=== PATIENT | female | born 1960 | race Caucasian/White ===

== ENCOUNTER 2017-06-04 20:03 | Emergency (ER) | payer MEDICARE ==
[~2017-06-04] VITALS: Ht 160 cm; Wt 158.3 kg
[~2017-06-04 20:03] MED LIST: CEPH-568 PO; NORCO5 PO; SULF1TAB47 PO
[2017-06-04 20:13] VITALS: BP_SYST 159
--- NOTE | 2017-06-04 20:20 | NUR ---
TABATHA Urbina at bedside examining patient.
--- NOTE | 2017-06-04 20:20 | NUR ---
Patient to ER bed 3 to gown for evaluation. Side rails up. Report given to XIOMARA BENEDICT.
--- NOTE | 2017-06-04 20:30 | NUR ---
Pt states that she has been having R back pain that radiates to the R leg for a week. Will continue to monitor. No other injuries or complaints mentioned/noted. No distress noted.
[2017-06-04 20:54] LABS: BASOPHILS # (AUTO) 0.1 K/uL (0.0-0.2); BASOPHILS % (AUTO) 1.2 % (0.0-2.0); EOSINOPHILS # (AUTO) 0.1 K/uL (0.0-0.4); EOSINOPHILS % (AUTO) 1.1 % (0.0-4.0); HEMOGLOBIN 15.6 g/dL (12.0-16.0); LYMPHOCYTES # (AUTO) 1.8 K/uL (1.0-5.5); LYMPHOCYTES % (AUTO) 17.8 % (20.5-51.5); MEAN CORPUSCULAR HEMOGLOBIN 29 pg (27-31); MEAN CORPUSCULAR HGB CONC 33 % (32-36); MEAN CORPUSCULAR VOLUME 88 fL (79.0-98.0); MONOCYTES # (AUTO) 0.7 K/uL (0.0-1.0); MONOCYTES % (AUTO) 6.6 % (1.7-9.3); NEUTROPHILS # (AUTO) 7.5 K/uL (1.8-7.7); NEUTROPHILS % (AUTO) 73.3 % (40.0-70.0); PLATELET COUNT (AUTO) 273 K/uL (130-430); RED BLOOD CELL COUNT(AUTO) 5.35 MIL/uL (4.2-6.2); RED CELL DISTRIBUTION WIDTH 13.3 % (9.0-15.0); WHITE BLOOD COUNT (AUTO) 10.2 K/uL (4.8-10.8)
[2017-06-04 21:00] LABS: CALCIUM 8.8 mg/dL (8.4-11.0); CREATININE 0.6 mg/dL (0.55-1.30); POTASSIUM 3.6 mmol/L (3.5-5.1)
[2017-06-04 21:07] LABS: ALBUMIN 3.6 g/dL (3.4-4.8); TOTAL BILIRUBIN 0.4 mg/dL (0.0-1.0)
[2017-06-04] MEDS ORDERED: KETOROLAC TROMETHAMINE 30 MG VIAL IM ONE (21:15)
[2017-06-04] MEDS ORDERED: CYCLOBENZAPRINE HCL 10 MG TABLET (FLEXERIL) PO ONE (21:15)
[2017-06-04 21:25] LABS: BILIRUBIN,URINE NEGATIVE (NEGATIVE); BLOOD, URINE NEGATIVE (NEGATIVE); CLARITY/URINE CLEAR (CLEAR); COLOR,URINE YELLOW (YELLOW); GLUCOSE,URINE NEGATIVE (NEGATIVE); KETONES,URINE NEGATIVE (NEGATIVE); LEUKOCYTE ESTERASE ,URINE NEGATIVE (NEGATIVE); NITRITE, URINE NEGATIVE (NEGATIVE); PH,URINE 6.5 (5.0-8.0); PROTEIN URINE NEGATIVE (NEGATIVE); UROBILINOGEN,URINE 0.2 (0.2-1.0)
[2017-06-04 22:05] VITALS: BP_SYST 144
--- NOTE | 2017-06-04 22:05 | NUR ---
Patient given written and verbal discharge instructions and verbalizes understanding. ER MD discussed with patient the results and treatment provided. Patient in stable condition. ID arm band removed. Rx of Flexeril and Naproxen given. Patient educated on pain management and to follow up with PMD. Pain Scale 0/10. Opportunity for questions provided and answered. No adverse reactions noted.
== END 2017-06-04 22:05 | disposition home or self-care (01) ==
LOC: SED 20:03
DX: S39.012A Strain of muscle, fascia and tendon of lower back, initial encounter (principal); I10 Essential (primary) hypertension; E11.9 Type 2 diabetes mellitus without complications; J45.909 Unspecified asthma, uncomplicated; E66.01 Morbid (severe) obesity due to excess calories; Z90.49 Acquired absence of other specified parts of digestive tract; Z98.84 Bariatric surgery status; Z68.44 Body mass index [BMI] 60.0-69.9, adult; X58.XXXA Exposure to other specified factors, initial encounter; Y93.89 Activity, other specified; Y92.89 Other specified places as the place of occurrence of the external cause; Y99.8 Other external cause status
CPT/HCPCS: 36415; 72100; 80053; 81003; 81025; 83690; 85025; 96372; 99285; J1885

== ENCOUNTER 2017-09-19 00:24 | Emergency (ER) | payer MEDICARE ==
[~2017-09-19] VITALS: Ht 162.6 cm; Wt 141.1 kg
--- NOTE | 2017-09-19 00:30 | NUR ---
Patient to ER bed 6 to gown for evaluation. Side rails up. Report given to XIOMARA MILLARD.
--- NOTE | 2017-09-19 00:30 | NUR ---
Patient arrived to ED with c/o left foot pain. Reports 5/10 pain. Pain with ambulation. No obvious deformity noted to site. Denies trauma. Patient also reports deformity to right breast that appeared 1 week ago. Denies N/V/D
--- NOTE | 2017-09-19 00:33 | NUR ---
ED MD Amezcua at bedside for medical evaluation.
[2017-09-19 00:35] VITALS: BP_SYST 142
[2017-09-19 00:42] VITALS: BP_SYST 139
--- NOTE | 2017-09-19 00:42 | NUR ---
Patient given written and verbal discharge instructions and verbalizes understanding. ER MD discussed with patient the results and treatment provided. Patient in stable condition. ID arm band removed. IV catheter removed intact and dressing applied, no active bleeding. Rx of Tramadol, Keflex and Clindamycin given. Patient educated on pain management and to follow up with PMD. Pain Scale 3/10 tolerable for patient. Opportunity for questions provided and answered. Medication side effect fact sheet provided.
== END 2017-09-19 00:42 | disposition home or self-care (01) ==
LOC: SED 00:24
DX: S90.32XA Contusion of left foot, initial encounter (principal); N61.0 Mastitis without abscess; J45.909 Unspecified asthma, uncomplicated; I10 Essential (primary) hypertension; Z79.899 Other long term (current) drug therapy; X58.XXXA Exposure to other specified factors, initial encounter; Y93.89 Activity, other specified; Y92.89 Other specified places as the place of occurrence of the external cause; Y99.8 Other external cause status
CPT/HCPCS: 99284

== ENCOUNTER 2018-05-16 15:07 | Emergency (ER) | payer MEDICARE ==
[~2018-05-16] VITALS: Ht 162.6 cm; Wt 162.8 kg
[2018-05-16 15:07] VITALS: BP_SYST 164
[2018-05-16] MEDS ORDERED: KETOROLAC TROMETHAMINE 60 MG/2 ML VIAL IM ONE (15:30)
[2018-05-16 16:00] VITALS: BP_SYST 164
== END 2018-05-16 16:00 | disposition home or self-care (01) ==
LOC: SED 15:07
DX: K08.89 Other specified disorders of teeth and supporting structures (principal); K02.9 Dental caries, unspecified; J45.909 Unspecified asthma, uncomplicated; I10 Essential (primary) hypertension; E11.9 Type 2 diabetes mellitus without complications; Z79.899 Other long term (current) drug therapy
CPT/HCPCS: 96372; 99283; J1885

== ENCOUNTER 2019-06-04 22:23 | Emergency (ER) | payer BC, MEDICARE ==
[~2019-06-04] VITALS: Ht 162.6 cm; Wt 162.8 kg
[2019-06-04] MEDS ORDERED: ASPIRIN 81 MG TAB.CHEW PO ONE (22:45)
[2019-06-04 23:07] LABS: BASOPHILS % (AUTO) 0.3 % (0.0-2.0); EOSINOPHILS # (AUTO) 0.1 K/uL (0.0-0.4); EOSINOPHILS % (AUTO) 1.4 % (0.0-4.0); HEMATOCRIT 42.4 % (36-48); HEMOGLOBIN 14.3 g/dL (12.0-16.0); LYMPHOCYTES # (AUTO) 1.8 K/uL (1.0-5.5); LYMPHOCYTES % (AUTO) 18.8 % (20.5-51.5); MEAN CORPUSCULAR HEMOGLOBIN 30 pg (27-31); MEAN CORPUSCULAR HGB CONC 34 % (32-36); MEAN CORPUSCULAR VOLUME 90 fL (79.0-98.0); MONOCYTES # (AUTO) 0.7 K/uL (0.0-1.0); MONOCYTES % (AUTO) 7.1 % (1.7-9.3); NEUTROPHILS # (AUTO) 7.1 K/uL (1.8-7.7); NEUTROPHILS % (AUTO) 72.4 % (40.0-70.0); PLATELET COUNT (AUTO) 242 K/uL (130-430); RED BLOOD CELL COUNT(AUTO) 4.73 MIL/uL (4.2-6.2); WHITE BLOOD COUNT (AUTO) 9.8 K/uL (4.8-10.8)
[2019-06-04 23:10] VITALS: BP_SYST 158
[2019-06-04 23:25] LABS: PROTHROMBIN TIME 9.6 SECS (9.5-12.5)
[2019-06-04 23:29] LABS: CREATININE 0.7 mg/dL (0.55-1.30); POTASSIUM 3.6 mmol/L (3.5-5.1)
[2019-06-04 23:35] LABS: ALBUMIN 3.3 g/dL (3.4-4.8); TOTAL BILIRUBIN 0.2 mg/dL (0.0-1.0)
[2019-06-05] MEDS ORDERED: NACL 0.9% 1,000 ML IV ONE (01:45)
[2019-06-05] MEDS ORDERED: metFORMIN HCL 500 MG TABLET PO SCH (02:00)
--- NOTE | 2019-06-05 02:15 | NUR ---
Patient to ER bed 7 to gown for evaluation. Side rails up.
--- NOTE | 2019-06-05 02:20 | NUR ---
Dr. Thayer bedside for Pt eval
--- NOTE | 2019-06-05 02:30 | NUR ---
Pt BIB parent to ED C/O epigastric pain since 12:00 today. The pain is rated 6/10 intensity. She further reports nausea associated with non-bilious, non-bloody emesis. She states chest pain earlier today but denies any now. No other injuries and or complaints noted. VSS no s/s of acute distress. Resting on gurney rails up
[2019-06-05 03:20] VITALS: BP_SYST 158
--- NOTE | 2019-06-05 03:20 | NUR ---
Patient given written and verbal discharge instructions and verbalizes understanding. ER MD discussed with patient the results and treatment provided. Patient in stable condition. ID arm band removed. IV catheter removed intact and dressing applied, no active bleeding. Rx of Ranitidine and given. Patient educated on pain management and to follow up with PMD. Pain Scale 0/10 Opportunity for questions provided and answered. Medication side effect fact sheet provided.
== END 2019-06-05 03:20 | disposition home or self-care (01) ==
LOC: SED 22:23
DX: R07.89 Other chest pain (principal); R10.13 Epigastric pain; E11.9 Type 2 diabetes mellitus without complications; J45.909 Unspecified asthma, uncomplicated; I10 Essential (primary) hypertension; L03.115 Cellulitis of right lower limb; F17.210 Nicotine dependence, cigarettes, uncomplicated; Z72.89 Other problems related to lifestyle; Z79.899 Other long term (current) drug therapy
CPT/HCPCS: 36415; 71045; 80053; 82550-TC; 84484; 85025; 85610-TC; 85730-TC; 93005; 99284

== ENCOUNTER 2019-07-23 15:45 | Emergency (ER) | payer BC ==
[~2019-07-23] VITALS: Ht 160 cm; Wt 154.2 kg
[2019-07-23 15:50] VITALS: BP_SYST 181
--- NOTE | 2019-07-23 15:50 | NUR ---
Patient triaged and placed in waiting room. VSS and patient appears in no acute distress at this time. Accompanied by grandchildren, awaiting available bed, and MD notified of need for MSE.
--- NOTE | 2019-07-23 18:28 | NUR ---
Patient to ER bed 6 to gown for evaluation. Side rails up. Report given to XIOMARA Harley.
--- NOTE | 2019-07-23 18:34 | NUR ---
Pt AAOx4 ambulated into ED c/o R 05/05 throbbing jaw pain/toothache and swelling x 1 month with sowrsening symptoms. Pt was seen by dentist who gave rx abx and tylenol with no relief. Denies n/v/d/bleeding. No other injuries/complaints per pt/noted. Will continue to monitor.
--- NOTE | 2019-07-23 18:40 | NUR ---
ER Dr. Thayer at bedside examining patient.
[2019-07-23] MEDS ORDERED: ACETAMINOPHEN 500 MG TABLET PO ONE (19:00)
[2019-07-23 19:15] VITALS: BP_SYST 162
--- NOTE | 2019-07-23 19:15 | NUR ---
Patient given written and verbal discharge instructions and verbalizes understanding. ER MD Thayer discussed with patient the results and treatment provided. Patient in stable condition. ID arm band removed. Rx of Penicillin VK, Tylenol with Codeine given. Patient educated on pain management and to follow up with PMD. Pain Scale 0. Opportunity for questions provided and answered. Medication side effect fact sheet provided.
== END 2019-07-23 19:15 | disposition home or self-care (01) ==
LOC: SED 15:45
DX: K02.9 Dental caries, unspecified (principal); J45.909 Unspecified asthma, uncomplicated; E11.9 Type 2 diabetes mellitus without complications; I10 Essential (primary) hypertension; Z98.890 Other specified postprocedural states
CPT/HCPCS: 99283

== ENCOUNTER 2020-01-15 18:30 | Emergency (ER) | payer BC ==
[~2020-01-15] VITALS: Ht 162.6 cm; Wt 140.6 kg
--- NOTE | 2020-01-15 19:20 | NUR ---
Pt placed in bed #3.
[2020-01-15 19:30] VITALS: BP_SYST 154
--- NOTE | 2020-01-15 19:30 | NUR ---
ER at bedside examining patient.
--- NOTE | 2020-01-15 19:45 | NUR ---
59 y/o female presents to the ER c/o rash on abdomen, b/l lower extremities w/ itcheness x 5days. Rash appears pimple like in different stages of healing, no fluid like d/c from rash. Pt denies use of new soaps, perfume, lotions. HX DM, Hernia. NKA.
[2020-01-15] MEDS ORDERED: DIPHENHYDRAMINE HCL 50 MG CAPSULE PO ONE (20:15)
[2020-01-15] MEDS ORDERED: DIPHENHYDRAMINE HCL 50 MG CAPSULE ONE (20:26)
[2020-01-15 20:27] VITALS: BP_SYST 154
--- NOTE | 2020-01-15 20:29 | NUR ---
Patient given written and verbal discharge instructions and verbalizes understanding. ER MD discussed with patient the results and treatment provided. Patient in stable condition. ID arm band removed. Rx of Diphenhydramine given. Opportunity for questions provided and answered.
== END 2020-01-15 20:27 | disposition home or self-care (01) ==
LOC: SED 18:30
DX: L03.311 Cellulitis of abdominal wall (principal); R21 Rash and other nonspecific skin eruption; I10 Essential (primary) hypertension; E11.9 Type 2 diabetes mellitus without complications; J45.909 Unspecified asthma, uncomplicated; Z79.899 Other long term (current) drug therapy
CPT/HCPCS: 99283; Q0163

== ENCOUNTER 2022-01-20 21:43 | Emergency (ER) | payer BC ==
[~2022-01-20] VITALS: Ht 162.6 cm; Wt 126.1 kg
[2022-01-20 21:57] VITALS: BP_SYST 159
--- NOTE | 2022-01-20 22:08 | NUR ---
PT IN WAITING ROOM AWAITING EXAM AND ROOM AVAILABILITY
[2022-01-20] MEDS ORDERED: CHLO118L TP (23:40)
[2022-01-20] MEDS ORDERED: SULF1TAB48 PO (23:40)
[2022-01-21] MEDS ORDERED: VANCOMYCIN HCL 1000 MG/VIAL IV ONE (00:17)
[2022-01-21] MEDS ORDERED: cefTRIAXone 1 GM IVPB PREMIX 50 ML IV ONE (00:30)
[2022-01-21] MEDS: VANCOMYCIN HCL 1,000 MG in NS 250 ML IV ONE ×2 (00:30→02:49)
[2022-01-21 03:23] VITALS: BP_SYST 142
--- NOTE | 2022-01-21 03:25 | NUR ---
dc patient home aaox4, no sob noted and not in any distress. DC instruction and prescription were given to pt. Verbal Dc and print out was given by Dr. Astudillo at bedside, pt verbalized understanding and pout of department with steady gait.
== END 2022-01-21 03:23 | disposition home or self-care (01) ==
LOC: SED 21:43
DX: L03.314 Cellulitis of groin (principal); N61.1 Abscess of the breast and nipple; J45.909 Unspecified asthma, uncomplicated; E11.9 Type 2 diabetes mellitus without complications; I10 Essential (primary) hypertension; Z79.899 Other long term (current) drug therapy
CPT/HCPCS: 36415; 87040; 96365; 96366; 96368; 99284; J0696; J3370

== ENCOUNTER 2023-03-20 10:21 | Emergency (ER) | payer BC ==
[~2023-03-20] VITALS: Ht 160 cm; Wt 167.4 kg
[~2023-03-20 10:21] MED LIST changes: +CHLO118L TP; +SULF1TAB48 PO
[2023-03-20 10:49] VITALS: BP_SYST 151; PULSE 106; RESP 16; TEMP 98.8; O2SAT 95
[2023-03-20] MEDS ORDERED: METF1000 PO (10:55)
[2023-03-20] MEDS ORDERED: SIMV-343 PO (10:55)
[2023-03-20] MEDS ORDERED: NACL 0.9% 1,000 ML IV ONE (11:15)
[2023-03-20 11:28] LABS: BASOPHILS # (AUTO) 0.1 K/uL (0.0-0.2); BASOPHILS % (AUTO) 0.5 % (0.0-2.0); HEMATOCRIT 43.7 % (36-48); HEMOGLOBIN 14.5 g/dL (12.0-16.0); LYMPHOCYTES # (AUTO) 0.5 K/uL (1.0-5.5); LYMPHOCYTES % (AUTO) 3.6 % (20.5-51.5); MEAN CORPUSCULAR HEMOGLOBIN 29 pg (27-31); MEAN CORPUSCULAR HGB CONC 33 % (32-36); MEAN CORPUSCULAR VOLUME 88 fL (79.0-98.0); MONOCYTES # (AUTO) 1.1 K/uL (0.0-1.0); MONOCYTES % (AUTO) 8.1 % (1.7-9.3); NEUTROPHILS # (AUTO) 11.8 K/uL (1.8-7.7); NEUTROPHILS % (AUTO) 87.8 % (40.0-70.0); PLATELET COUNT (AUTO) 247 K/uL (130-430); RED BLOOD CELL COUNT(AUTO) 4.97 MIL/uL (4.2-6.2); WHITE BLOOD COUNT (AUTO) 13.4 K/uL (4.8-10.8)
[2023-03-20 11:36] LABS: CALCIUM 8.4 mg/dL (8.4-11.0); CREATININE 0.62 mg/dL (0.55-1.30); POTASSIUM 3.9 mmol/L (3.5-5.1)
[2023-03-20 11:41] LABS: ALBUMIN 3.1 g/dL (3.4-4.8); TOTAL BILIRUBIN 0.9 mg/dL (0.0-1.0); TOTAL PROTEIN, SERUM 7.5 g/dL (6.4-8.3)
[2023-03-20 13:12] LABS: BILIRUBIN,URINE NEGATIVE (NEGATIVE); BLOOD, URINE TRACE (NEGATIVE); CLARITY/URINE SLIGHTLY HAZY (CLEAR); COLOR,URINE YELLOW (YELLOW); GLUCOSE,URINE TRACE (NEGATIVE); KETONES,URINE NEGATIVE (NEGATIVE); LEUKOCYTE ESTERASE ,URINE 2+ (NEGATIVE); NITRITE, URINE NEGATIVE (NEGATIVE); PH,URINE 6.5 (5.0-8.0); PROTEIN URINE TRACE (NEGATIVE); UROBILINOGEN,URINE 0.2 (0.2-1.0)
[2023-03-20 13:18] LABS: BACTERIA,URINE MANY /HPF (None Seen)
[2023-03-20 14:01] VITALS: BP_SYST 138; PULSE 95; RESP 14; O2SAT 95
[2023-03-20] MEDS ORDERED: cefTRIAXone 1 GM IVPB PREMIX 50 ML IV ONE (14:15)
[2023-03-20] MEDS ORDERED: KETOROLAC TROMETHAMINE 30 MG VIAL IVP ONE (14:15)
[2023-03-20] MEDS ORDERED: CEPH-548 PO (14:20)
[2023-03-20] MEDS ORDERED: IBUP-1971 PO (14:20)
[2023-03-20] MEDS ORDERED: ONDA-8 TL (14:20)
== END 2023-03-20 16:25 | disposition home or self-care (01) ==
LOC: SED 10:21
DX: N12 Tubulo-interstitial nephritis, not specified as acute or chronic (principal); R10.9 Unspecified abdominal pain; R11.0 Nausea; J45.909 Unspecified asthma, uncomplicated; E11.9 Type 2 diabetes mellitus without complications; I10 Essential (primary) hypertension; R68.83 Chills (without fever); Z79.899 Other long term (current) drug therapy
CPT/HCPCS: 99285; 74176; 96365; 96361; 96375; 80053; 81000; 83690; 85025; 87040; 87086; 36415; 76376; 83605; J0696; J1885; J7030

== ENCOUNTER 2023-06-15 22:52 | Emergency (ER) | payer BC ==
[~2023-06-15] VITALS: Ht 162.6 cm; Wt 133.8 kg
[~2023-06-15 22:52] MED LIST changes: +CEPH-548 PO; -CEPH-568 PO; +IBUP-1971 PO; +METF1000 PO; +ONDA-8 TL; +SIMV-343 PO; -SULF1TAB47 PO
[2023-06-15 23:25] VITALS: BP_SYST 111; PULSE 86; RESP 18; TEMP 96.8; O2SAT 98
[2023-06-16] MEDS ORDERED: MED4 PO (00:06)
== END 2023-06-16 00:24 | disposition home or self-care (01) ==
LOC: SED 22:52
DX: J06.9 Acute upper respiratory infection, unspecified (principal); E04.8 Other specified nontoxic goiter; J45.909 Unspecified asthma, uncomplicated; E11.9 Type 2 diabetes mellitus without complications; I10 Essential (primary) hypertension; Z79.899 Other long term (current) drug therapy
CPT/HCPCS: 99283

== ENCOUNTER 2023-08-18 11:36 | Emergency (ER) | payer BC ==
[~2023-08-18] VITALS: Ht 162.6 cm; Wt 126.6 kg
[~2023-08-18 11:36] MED LIST changes: +MED4 PO
[2023-08-18 12:25] VITALS: BP_SYST 125; PULSE 97; RESP 18; TEMP 97; O2SAT 98
[2023-08-18 12:38] LABS: BASOPHILS % (AUTO) 0.4 % (0.0-2.0); MEAN CORPUSCULAR HEMOGLOBIN 30 pg (27-31); MONOCYTES # (AUTO) 0.8 K/uL (0.0-1.0); NEUTROPHILS # (AUTO) 8.3 K/uL (1.8-7.7)
[2023-08-18 12:43] LABS: EOSINOPHILS % (AUTO) 0.3 % (0.0-4.0); HEMATOCRIT 44.8 % (36-48); HEMOGLOBIN 15.6 g/dL (12.0-16.0); LYMPHOCYTES # (AUTO) 1.5 K/uL (1.0-5.5); LYMPHOCYTES % (AUTO) 14.2 % (20.5-51.5); MEAN CORPUSCULAR HGB CONC 35 % (32-36); MEAN CORPUSCULAR VOLUME 87 fL (79.0-98.0); MONOCYTES % (AUTO) 7.7 % (1.7-9.3); NEUTROPHILS % (AUTO) 77.4 % (40.0-70.0); PLATELET COUNT (AUTO) 342 K/uL (130-430); RED BLOOD CELL COUNT(AUTO) 5.14 MIL/uL (4.2-6.2); RED CELL DISTRIBUTION WIDTH 14.1 % (9.0-15.0); WHITE BLOOD COUNT (AUTO) 10.8 K/uL (4.8-10.8)
[2023-08-18 12:53] LABS: CALCIUM 9.6 mg/dL (8.4-11.0); CREATININE 0.66 mg/dL (0.55-1.30); POTASSIUM 3.4 mmol/L (3.5-5.1)
[2023-08-18 12:58] LABS: PROTHROMBIN TIME 10.6 SECS (9.5-12.5)
[2023-08-18 13:28] LABS: FREE T4 (FREE THYROXINE) 1.2 ng/dL (0.6-1.6); THYROID STIMULATING HORMONE 1.74 uIu/mL (0.34-4.82)
[2023-08-18 15:35] VITALS: BP_SYST 125; PULSE 97; RESP 18; TEMP 97; O2SAT 98
== END 2023-08-18 15:35 | disposition home or self-care (01) ==
LOC: SED 11:36
DX: R22.1 Localized swelling, mass and lump, neck (principal); J45.909 Unspecified asthma, uncomplicated; E11.9 Type 2 diabetes mellitus without complications; I10 Essential (primary) hypertension; Z79.899 Other long term (current) drug therapy
CPT/HCPCS: 36415; 70490; 76376; 80048; 83605; 84439; 84443; 85025; 85610-TC; 85730-TC; 99284